=== PATIENT | male | born 1995 | race African-American/Black ===

== ENCOUNTER 2016-08-09 17:19 | Emergency (ER) | payer SELFPAY ==
[2016-08-09 17:30] VITALS: BP 125/75
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
[2016-08-09] MEDS ORDERED: Bacitracin Oint 1 GM U/D Packet TOP ONE (18:38)
--- NOTE | 2016-08-11 14:56 | CR ---
EXAM DATE: 08/09/16 PATIENT'S AGE: 21 Patient: TYREE CM Facility: [place], [place] Site . Site : 1995 Study: XRay Extremity Left [id number] 5:40:23 PM Ordering Physician: Doctor Johnson Final Report: INDICATION: injury/pain TECHNIQUE: Two views of the left wrist COMPARISON: None FINDINGS: Bones: No fractures or bone lesions. Joint spaces: Unremarkable. Soft tissues: Unremarkable. IMPRESSION: No acute bony abnormality. Dictated by Antonio Marcial MD @ 08/09/2016 6:30:41 PM Dictated by: Antonio Marcial MD @ 08/09/2016 18:31:03 (Electronic Signature) Report Signed by Proxy. [facility]ITALAguila
== END 2016-08-09 18:53 | disposition home or self-care (01) ==
LOC: MW.ED 17:19
DX: S60.212A Contusion of left wrist, initial encounter (principal); S30.811A Abrasion of abdominal wall, initial encounter; S80.211A Abrasion, right knee, initial encounter; S80.212A Abrasion, left knee, initial encounter; V19.9XXA Pedal cyclist (driver) (passenger) injured in unspecified traffic accident, initial encounter
CPT/HCPCS: 73100-26-LT; 73100-LT; 99283